=== PATIENT | male | born 1955 | race Caucasian/White ===

== ENCOUNTER 2017-03-13 00:44 | Day surgery (SDC) | payer MEDICARE, BC ==
[~2017-03-13 00:44] MED LIST: ASCO500 PO; ASPI325EC PO; CHLO25B PO; CHOL10002; CIME400; CIME400 PO; CODACE30 PO; Elemental Calc600 MG PO; FAMO10 PO; FOLI1 PO; Flurbiprofen100 MG; INFLECTRA100 MG IV; Lotrel 10-20 M1 EACH PO; METHOTREXA25 MG/1 M8 IJ; METO25ER PO; METTREX2.5 PO; MULTI VITAMIN1 EACH PO; NITR.6SL SL; NITR.8TP; OMEP20ER PO; OMEP40CA12 PO; ONDA8 PO; Omeprazole20 M1; PANT40 PO; Remicade100 MG IV; SIMV40 PO; STOOL SOFTENER50 MG PO; SULI150
[2017-03-13] MEDS ORDERED: Lipitor80 MG PO (08:46)
== END 2017-03-13 10:59 | disposition home or self-care (01) ==
LOC: ATC 00:44
DX: M05.79 Rheumatoid arthritis with rheumatoid factor of multiple sites without organ or systems involvement (principal); M17.12 Unilateral primary osteoarthritis, left knee
CPT/HCPCS: 96413; 96415; J7050; Q5102-ZB

== ENCOUNTER 2017-05-08 00:34 | Day surgery (SDC) | payer MEDICARE, BC ==
[~2017-05-08 00:34] MED LIST changes: +Lipitor80 MG PO
== END 2017-05-08 10:56 | disposition home or self-care (01) ==
LOC: ATC 00:34
DX: M05.79 Rheumatoid arthritis with rheumatoid factor of multiple sites without organ or systems involvement (principal)
CPT/HCPCS: 96413; 96415; J7050; Q5102-ZB

== ENCOUNTER 2017-07-03 00:14 | Day surgery (SDC) | payer MEDICARE, BC | END 2017-07-03 11:32 | disposition home or self-care (01) | LOC: ATC 00:14 | DX: M05.79 Rheumatoid arthritis with rheumatoid factor of multiple sites without organ or systems involvement (principal); I25.2 Old myocardial infarction; Z86.73 Personal history of transient ischemic attack (TIA), and cerebral infarction without residual deficits | CPT/HCPCS: 96413; 96415; J1200; J2930; J7050; Q5103 ==

== ENCOUNTER 2017-11-04 07:28 | Day surgery (SDC) | payer MEDICARE, BC | END 2017-11-04 10:43 | disposition home or self-care (01) | LOC: ATC 07:28 | DX: M05.79 Rheumatoid arthritis with rheumatoid factor of multiple sites without organ or systems involvement (principal); K76.0 Fatty (change of) liver, not elsewhere classified; I25.2 Old myocardial infarction; Z86.73 Personal history of transient ischemic attack (TIA), and cerebral infarction without residual deficits | CPT/HCPCS: 96413; 96415; J7050; Q5103 ==

== ENCOUNTER 2018-03-01 00:05 | Day surgery (SDC) | payer MEDICARE, BC ==
[2018-03-01] MEDS ORDERED: NAPR500ERA PO (08:54)
== END 2018-03-01 22:50 | disposition home or self-care (01) ==
LOC: ATC 00:05
DX: M05.79 Rheumatoid arthritis with rheumatoid factor of multiple sites without organ or systems involvement (principal)
CPT/HCPCS: 96413; 96415; J7050; Q5103

== ENCOUNTER 2018-04-28 00:13 | Day surgery (SDC) | payer MEDICARE, BC ==
[~2018-04-28 00:13] MED LIST changes: +NAPR500ERA PO
--- NOTE | 2018-04-28 09:57 | NUR ---
PULSE: PT HAS SLOW PULSE RATE, DOCTOR AWARE
== END 2018-04-28 10:55 | disposition home or self-care (01) ==
LOC: ATC 00:13
DX: M05.79 Rheumatoid arthritis with rheumatoid factor of multiple sites without organ or systems involvement (principal)
CPT/HCPCS: 96413; 96415; J7050; Q5103

== ENCOUNTER 2018-08-30 00:38 | Day surgery (SDC) | payer MEDICARE, OTHER | END 2018-08-30 11:22 | disposition home or self-care (01) | LOC: ATC 00:38 | DX: M05.79 Rheumatoid arthritis with rheumatoid factor of multiple sites without organ or systems involvement (principal); Z79.1 Long term (current) use of non-steroidal anti-inflammatories (NSAID); Z79.82 Long term (current) use of aspirin; Z79.899 Other long term (current) drug therapy; M77.11 Lateral epicondylitis, right elbow; M17.5 Other unilateral secondary osteoarthritis of knee; K22.70 Barrett's esophagus without dysplasia; K76.0 Fatty (change of) liver, not elsewhere classified; Z86.73 Personal history of transient ischemic attack (TIA), and cerebral infarction without residual deficits; Z95.5 Presence of coronary angioplasty implant and graft | CPT/HCPCS: 96413; 96415; A9270; J7050; Q5103 ==

== ENCOUNTER 2018-10-25 00:09 | Day surgery (SDC) | payer MEDICARE, BC, OTHER | END 2018-10-25 10:52 | disposition home or self-care (01) | LOC: ATC 00:09 | DX: M05.79 Rheumatoid arthritis with rheumatoid factor of multiple sites without organ or systems involvement (principal); M17.12 Unilateral primary osteoarthritis, left knee; M77.11 Lateral epicondylitis, right elbow; K22.70 Barrett's esophagus without dysplasia; Z79.899 Other long term (current) drug therapy; Z86.73 Personal history of transient ischemic attack (TIA), and cerebral infarction without residual deficits; Z79.82 Long term (current) use of aspirin; Z95.5 Presence of coronary angioplasty implant and graft | CPT/HCPCS: 96413; 96415; J7050; Q5103 ==

== ENCOUNTER 2018-12-20 00:01 | Day surgery (SDC) | payer MEDICARE, BC, OTHER | END 2018-12-20 12:40 | disposition home or self-care (01) | LOC: ATC 00:01 | DX: M05.9 Rheumatoid arthritis with rheumatoid factor, unspecified (principal); M17.12 Unilateral primary osteoarthritis, left knee; M77.11 Lateral epicondylitis, right elbow; Z79.82 Long term (current) use of aspirin; Z79.899 Other long term (current) drug therapy | CPT/HCPCS: A9270; J7050; Q5103 ==

== ENCOUNTER 2019-02-15 00:53 | Day surgery (SDC) | payer MEDICARE, OTHER | END 2019-02-15 11:41 | disposition home or self-care (01) | LOC: ATC 00:53 | DX: M05.79 Rheumatoid arthritis with rheumatoid factor of multiple sites without organ or systems involvement (principal); M77.12 Lateral epicondylitis, left elbow; M77.11 Lateral epicondylitis, right elbow; M17.12 Unilateral primary osteoarthritis, left knee | CPT/HCPCS: 96413; 96415; A9270; J7050; Q5103 ==

== ENCOUNTER 2019-12-07 00:30 | Day surgery (SDC) | payer MEDICARE, OTHER ==
[~2019-12-07 00:30] MED LIST changes: +AMLO5 PO; +AMLODIPINE-OLM1 EAC2 PO; -CHOL10002; +CLOP75 PO; +DICLOFENAC SOD100 GM TOP; +FISH OIL 1,001000 M1 PO; +FLUOROURACIL30 GM TOP; +MAGNESIUM OXID500 MG PO; -METHOTREXA25 MG/1 M8 IJ; +METHOTREXA25 MG/1 M8 SC; +PROBIOTIC1 EAC7 PO; +VITAMIN D33000 UNI1 PO; +[UNRECOGNIZED DRUG - OTHER]
== END 2019-12-07 11:50 | disposition home or self-care (01) ==
LOC: ATC 00:30
DX: M05.79 Rheumatoid arthritis with rheumatoid factor of multiple sites without organ or systems involvement (principal); K76.0 Fatty (change of) liver, not elsewhere classified; R05 Cough; Z79.899 Other long term (current) drug therapy
CPT/HCPCS: 96413; 96415; A9270

== ENCOUNTER 2020-02-01 00:14 | Day surgery (SDC) | payer MEDICARE, OTHER | END 2020-02-01 11:30 | disposition home or self-care (01) | LOC: ATC 00:14 | DX: M05.79 Rheumatoid arthritis with rheumatoid factor of multiple sites without organ or systems involvement (principal); K20.90 Esophagitis, unspecified without bleeding; Z79.82 Long term (current) use of aspirin; Z79.02 Long term (current) use of antithrombotics/antiplatelets; Z79.1 Long term (current) use of non-steroidal anti-inflammatories (NSAID); Z79.899 Other long term (current) drug therapy | CPT/HCPCS: 96413; 96415; A9270; J7050; Q5103 ==

== ENCOUNTER 2020-03-28 00:05 | Day surgery (SDC) | payer MEDICARE, OTHER, SELFPAY ==
[~2020-03-28] VITALS: Wt 89.3 kg
== END 2020-03-28 11:21 | disposition home or self-care (01) ==
LOC: ATC 00:05
DX: M05.79 Rheumatoid arthritis with rheumatoid factor of multiple sites without organ or systems involvement (principal); Z79.899 Other long term (current) drug therapy
CPT/HCPCS: 96413; 96415; A9270; J7050; Q5103

== ENCOUNTER 2020-05-23 00:04 | Day surgery (SDC) | payer MEDICARE, OTHER, SELFPAY | END 2020-05-23 11:40 | disposition home or self-care (01) | LOC: ATC 00:04 | DX: M05.79 Rheumatoid arthritis with rheumatoid factor of multiple sites without organ or systems involvement (principal); Z87.19 Personal history of other diseases of the digestive system; Z79.899 Other long term (current) drug therapy | CPT/HCPCS: 96413; 96415; A9270; J7050; Q5103 ==

== ENCOUNTER 2020-07-18 04:47 | Day surgery (SDC) | payer MEDICARE, OTHER, SELFPAY ==
[~2020-07-18] VITALS: Wt 89.5 kg
[2020-07-18] MEDS ORDERED: Benicar40 MG PO (09:25)
== END 2020-07-18 11:53 | disposition home or self-care (01) ==
LOC: ATC 04:47
DX: M05.79 Rheumatoid arthritis with rheumatoid factor of multiple sites without organ or systems involvement (principal); Z79.02 Long term (current) use of antithrombotics/antiplatelets; Z79.82 Long term (current) use of aspirin
CPT/HCPCS: 96413; 96415; A9270; J7050; Q5103

== ENCOUNTER 2020-11-07 00:49 | Day surgery (SDC) | payer MEDICARE, OTHER ==
[~2020-11-07 00:49] MED LIST changes: +Benicar40 MG PO
[2020-11-07] MEDS ORDERED: HYDCHL25 PO (09:25)
== END 2020-11-07 11:48 | disposition home or self-care (01) ==
LOC: ATC 00:49
DX: M05.79 Rheumatoid arthritis with rheumatoid factor of multiple sites without organ or systems involvement (principal)
CPT/HCPCS: 96413; 96415; A9270; J2704; J7050; Q5103

== ENCOUNTER 2021-03-27 00:25 | Day surgery (SDC) | payer MEDICARE, OTHER ==
[~2021-03-27 00:25] MED LIST changes: +HYDCHL25 PO
== END 2021-03-27 11:47 | disposition home or self-care (01) ==
LOC: ATC 00:25
DX: M05.79 Rheumatoid arthritis with rheumatoid factor of multiple sites without organ or systems involvement (principal)
CPT/HCPCS: A9270; J7050; Q5103

== ENCOUNTER 2021-05-17 08:28 | Day surgery (SDC) | payer MEDICARE, OTHER ==
[~2021-05-17] VITALS: Wt 89.4 kg
--- NOTE | 2021-05-17 08:25 | NUR ---
Spoke with Cuca at Dr. Zendejas's office. One time order received for inflectra for an infusion today. Cuca states Jonas Franklin NP will be back in the office on Thursday and they will fax the [facility] new orders for Crow to continue his inflectra infusions next week.
== END 2021-05-17 11:17 | disposition home or self-care (01) ==
LOC: ATC 08:28
DX: M05.9 Rheumatoid arthritis with rheumatoid factor, unspecified (principal); K22.70 Barrett's esophagus without dysplasia; M17.10 Unilateral primary osteoarthritis, unspecified knee; I10 Essential (primary) hypertension; E78.5 Hyperlipidemia, unspecified; K21.9 Gastro-esophageal reflux disease without esophagitis; Z95.5 Presence of coronary angioplasty implant and graft
CPT/HCPCS: 96413; 96415; A9270; J7050; Q5103

== ENCOUNTER 2021-09-06 00:48 | Day surgery (SDC) | payer MEDICARE, OTHER | END 2021-09-06 11:40 | disposition home or self-care (01) | LOC: ATC 00:48 | DX: M05.9 Rheumatoid arthritis with rheumatoid factor, unspecified (principal); K21.9 Gastro-esophageal reflux disease without esophagitis; K22.70 Barrett's esophagus without dysplasia; M17.0 Bilateral primary osteoarthritis of knee; I10 Essential (primary) hypertension; E78.5 Hyperlipidemia, unspecified; Z86.73 Personal history of transient ischemic attack (TIA), and cerebral infarction without residual deficits; Z79.899 Other long term (current) drug therapy | CPT/HCPCS: 96413; 96415; A9270; J7050; Q5103 ==

== ENCOUNTER 2022-01-01 00:32 | Day surgery (SDC) | payer MEDICARE, OTHER ==
[~2022-01-01] VITALS: Wt 92.2 kg
== END 2022-01-01 11:25 | disposition home or self-care (01) ==
LOC: ATC 00:32
DX: M05.9 Rheumatoid arthritis with rheumatoid factor, unspecified (principal); M17.12 Unilateral primary osteoarthritis, left knee; Z79.620 Long term (current) use of immunosuppressive biologic; Z79.631 Long term (current) use of antimetabolite agent
CPT/HCPCS: 96413; 96415; A9270; J7050; Q5103

== ENCOUNTER 2022-07-21 03:29 | Day surgery (SDC) | payer MEDICARE ==
[~2022-07-21] VITALS: Wt 94.7 kg
[2022-07-21 09:04] VITALS: BP 122/90
== END 2022-07-21 12:02 | disposition home or self-care (01) ==
LOC: ATC 03:29
DX: M05.79 Rheumatoid arthritis with rheumatoid factor of multiple sites without organ or systems involvement (principal)
CPT/HCPCS: A9270; J7050; Q5103

== ENCOUNTER 2023-01-19 04:10 | Day surgery (SDC) | payer MEDICARE ==
[~2023-01-19] VITALS: Wt 91.9 kg
[2023-01-19 08:57] VITALS: BP 134/87
== END 2023-01-19 11:40 | disposition home or self-care (01) ==
LOC: ATC 04:10
DX: M05.79 Rheumatoid arthritis with rheumatoid factor of multiple sites without organ or systems involvement (principal); M19.91 Primary osteoarthritis, unspecified site
CPT/HCPCS: 96413; 96415; A9270; J7050; Q5103

== ENCOUNTER 2023-03-30 00:07 | Day surgery (SDC) | payer MEDICARE ==
[2023-03-30] MEDS ORDERED: Acetaminophen 325 MG TABLET PO SCH (07:25)
[2023-03-30] MEDS ORDERED: Loratadine 10 MG Tab PO SCH (07:25)
[2023-03-30 07:34] VITALS: BP 110/71
[2023-03-30] MEDS ORDERED: Infliximab-DYYB 700 MG in NS 250 ML IV SCH (07:45)
== END 2023-03-30 10:23 | disposition home or self-care (01) ==
LOC: ATC 00:07
DX: M05.79 Rheumatoid arthritis with rheumatoid factor of multiple sites without organ or systems involvement (principal); R74.01 Elevation of levels of liver transaminase levels; M15.9 Polyosteoarthritis, unspecified
CPT/HCPCS: 96413; 96415; A9270; J7050; Q5103

== ENCOUNTER 2023-06-10 03:29 | Day surgery (SDC) | payer MEDICARE ==
[2023-06-10 08:43] VITALS: BP 123/92
[2023-06-10] MEDS ORDERED: Loratadine 10 MG Tab PO SCH (08:45)
[2023-06-10] MEDS ORDERED: Acetaminophen 325 MG TABLET PO PRN (08:45)
[2023-06-10] MEDS ORDERED: INFLIXIMAB DYYB IV SCH (08:50)
[2023-06-10] MEDS ORDERED: NS IV SCH (08:50)
== END 2023-06-10 11:14 | disposition home or self-care (01) ==
LOC: ATC 03:29
DX: M05.79 Rheumatoid arthritis with rheumatoid factor of multiple sites without organ or systems involvement (principal)
CPT/HCPCS: 96413; 96415; A9270; J7050; Q5103

== ENCOUNTER 2023-11-30 02:11 | Day surgery (SDC) | payer MEDICARE ==
[~2023-11-30] VITALS: Wt 92.9 kg
[2023-11-30] MEDS ORDERED: Loratadine 10 MG Tab PO SCH (07:15)
[2023-11-30] MEDS ORDERED: Acetaminophen 325 MG TABLET PO PRN (07:15)
[2023-11-30] MEDS ORDERED: DiphenhydrAMINE HCL 25 MG Cap PO PRN (07:15)
[2023-11-30] MEDS ORDERED: INFLIXIMAB DYYB IV SCH (08:10)
[2023-11-30] MEDS ORDERED: NS IV SCH (08:10)
[2023-11-30 08:13] VITALS: BP 113/70
== END 2023-11-30 10:50 | disposition home or self-care (01) ==
LOC: ATC 02:11
DX: M05.79 Rheumatoid arthritis with rheumatoid factor of multiple sites without organ or systems involvement (principal)
CPT/HCPCS: 96413; 96415; A9270; J7050; Q5103

== ENCOUNTER 2024-01-25 04:14 | Day surgery (SDC) | payer MEDICARE ==
[~2024-01-25] VITALS: Wt 92.5 kg
[2024-01-25] MEDS ORDERED: Acetaminophen 325 MG TABLET PO SCH (07:20)
[2024-01-25] MEDS ORDERED: Loratadine 10 MG Tab PO SCH (07:20)
[2024-01-25 09:05] VITALS: BP 111/79
[2024-01-25] MEDS ORDERED: INFLIXIMAB DYYB IV SCH (09:15)
[2024-01-25] MEDS ORDERED: NS IV SCH (09:15)
[2024-01-25] MEDS ORDERED: LEFL20 PO (09:44)
== END 2024-01-25 11:49 | disposition home or self-care (01) ==
LOC: ATC 04:14
DX: M05.79 Rheumatoid arthritis with rheumatoid factor of multiple sites without organ or systems involvement (principal)
CPT/HCPCS: 96413; 96415; A9270; J7050; Q5103

== ENCOUNTER 2024-03-21 07:41 | Day surgery (SDC) | payer MEDICARE ==
[~2024-03-21] VITALS: Wt 90.3 kg
[~2024-03-21 07:41] MED LIST changes: +Acetaminophen 325 MG TABLET PO SCH; +DiphenhydrAMINE HCL 25 MG Cap PO SCH; +LEFL20 PO
[2024-03-21 08:10] VITALS: BP 131/81
[2024-03-21] MEDS ORDERED: NS IV SCH (08:15)
[2024-03-21] MEDS ORDERED: INFLIXIMAB DYYB IV SCH (08:15)
== END 2024-03-21 11:08 | disposition home or self-care (01) ==
LOC: ATC 07:41
DX: M05.79 Rheumatoid arthritis with rheumatoid factor of multiple sites without organ or systems involvement (principal); Z79.899 Other long term (current) drug therapy
CPT/HCPCS: 96413; 96415; A9270; J7050; Q5103

== ENCOUNTER 2024-05-23 01:42 | Day surgery (SDC) | payer MEDICARE ==
[~2024-05-23] VITALS: Wt 91.0 kg
[~2024-05-23 01:42] MED LIST changes: -Acetaminophen 325 MG TABLET PO SCH; -DiphenhydrAMINE HCL 25 MG Cap PO SCH
[2024-05-23] MEDS ORDERED: Acetaminophen 325 MG TABLET PO PRN (07:15)
[2024-05-23] MEDS ORDERED: DiphenhydrAMINE HCL 25 MG Cap PO PRN (07:15)
[2024-05-23] MEDS ORDERED: NS IV SCH (08:15)
[2024-05-23] MEDS ORDERED: INFLIXIMAB DYYB IV SCH (08:15)
[2024-05-23 08:47] VITALS: BP 119/79
== END 2024-05-23 10:45 | disposition home or self-care (01) ==
LOC: ATC 01:42
DX: M05.79 Rheumatoid arthritis with rheumatoid factor of multiple sites without organ or systems involvement (principal)
CPT/HCPCS: 96413; 96415; A9270; J7050; Q5103

== ENCOUNTER 2024-07-25 03:47 | Day surgery (SDC) | payer MEDICARE ==
[2024-07-25] MEDS ORDERED: Acetaminophen 325 MG TABLET PO SCH (07:00)
[2024-07-25] MEDS ORDERED: DiphenhydrAMINE HCL 25 MG Cap PO SCH (07:00)
[2024-07-25] MEDS ORDERED: Infliximab-DYYB 600 MG in NS 250 ML IV SCH (08:20)
[2024-07-25 09:02] VITALS: BP 127/79
== END 2024-07-25 10:41 | disposition home or self-care (01) ==
LOC: ATC 03:47
DX: M05.79 Rheumatoid arthritis with rheumatoid factor of multiple sites without organ or systems involvement (principal); R74.01 Elevation of levels of liver transaminase levels; D84.9 Immunodeficiency, unspecified
CPT/HCPCS: 96413; 96415; A9270; J7050; Q5103

== ENCOUNTER 2024-10-05 05:32 | Day surgery (SDC) | payer MEDICARE ==
[~2024-10-05] VITALS: Wt 87.2 kg
[2024-10-05] MEDS ORDERED: Infliximab-DYYB 600 MG in NS 250 ML IV SCH (09:00)
[2024-10-05 09:03] VITALS: BP 123/97
== END 2024-10-05 11:30 | disposition home or self-care (01) ==
LOC: ATC 05:32
DX: M05.79 Rheumatoid arthritis with rheumatoid factor of multiple sites without organ or systems involvement (principal); M65.331 Trigger finger, right middle finger; M15.9 Polyosteoarthritis, unspecified; Z79.899 Other long term (current) drug therapy
CPT/HCPCS: 96413; 96415; A9270; J7050; Q5103

== ENCOUNTER 2024-11-28 00:10 | Day surgery (SDC) | payer MEDICARE ==
[~2024-11-28] VITALS: Wt 88.5 kg
[2024-11-28 09:00] VITALS: BP 132/88
[2024-11-28] MEDS ORDERED: Infliximab-DYYB 600 MG in NS 250 ML IV SCH (09:10)
== END 2024-11-28 11:43 | disposition home or self-care (01) ==
LOC: ATC 00:10
DX: M05.79 Rheumatoid arthritis with rheumatoid factor of multiple sites without organ or systems involvement (principal); D84.9 Immunodeficiency, unspecified
CPT/HCPCS: 96413; 96415; A9270; J7050; Q5103

== ENCOUNTER 2025-01-23 04:35 | Day surgery (SDC) | payer MEDICARE ==
[~2025-01-23] VITALS: Wt 87.0 kg
[2025-01-23] MEDS ORDERED: Infliximab-DYYB 600 MG in NS 250 ML IV SCH (09:05)
[2025-01-23 09:07] VITALS: BP 122/75
[2025-01-23] MEDS ORDERED: AMLODIPINE BES2.5 MG PO (09:15)
[2025-01-23] MEDS ORDERED: AMLODIPINE BESYL5 MG PO (09:16)
== END 2025-01-23 12:00 | disposition home or self-care (01) ==
LOC: ATC 04:35
DX: M05.79 Rheumatoid arthritis with rheumatoid factor of multiple sites without organ or systems involvement (principal); D84.9 Immunodeficiency, unspecified
CPT/HCPCS: 96413; 96415; A9270; J7050; Q5103